=== PATIENT | male | born 1945 | race Caucasian/White ===

== ENCOUNTER 2022-10-10 01:14 | Observation (INO) ==
[2022-10-10] MEDS ORDERED: Pantoprazole VIAL 40 MG VIAL IV ONE (01:37)
[2022-10-10 01:40] LABS: ABS Basophils 0.1 10^3/uL (0.0-0.1); ABS Eosinophils 0.2 10^3/uL (0.0-0.5); ABS Lymphocytes 1.8 10^3/uL (1.0-4.8); ABS Monocytes 0.9 10^3/uL (0.0-1.1); ABS Neutrophils 4.7 10^3/uL (1.5-7.6); ABS Nucleated RBC 0.01 10^3/ul; Hematocrit 20.6 % (38-53); Hemoglobin 6.8 g/dL (13.2-16.3); Lymphocyte % 23.1 %; Mean Corpuscular Hemoglobin 25.7 pg (27-33); Mean Corpuscular Hgb Conc 32.9 g/dL (31-36); Mean Corpuscular Volume 78.3 fL (80-97); Mean Platelet Volume 6.1 fL (7.5-11.2); Nucleated Red Blood Cells % 0.1 /100 WBC (0.0-0.4); Platelet Count 618 10^3/uL (150-450); Red Blood Count 2.64 10^6/uL (4.06-5.63); Red Cell Distribution Width 20.1 % (12-17); White Blood Count 7.7 10^3/uL (3.6-10.2)
[2022-10-10 01:48] LABS: Activated Partial Thrombo Time 31.2 seconds (26.0-38.0); INR 0.96 (0.88-1.18)
[2022-10-10 02:02] LABS: Calcium 9.1 mg/dL (8.6-10.3); Creatinine, Serum 0.61 mg/dL (0.67-1.17); Potassium 3.6 mmol/L (3.5-5.0); eGFR CKD-EPI 100.2 (>60)
[2022-10-10 02:23] LABS: Albumin 3.8 g/dL (3.2-5.2); Albumin/Globulin Ratio 1.7 (1-3); Direct Bilirubin 0.1 mg/dL (0.03-0.18); Globulin 2.2 g/dL (2-4); Indirect Bilirubin 0.3 mg/dL (0.3-1.0); Total Bilirubin 0.4 mg/dL (0.2-1.0)
[2022-10-10 07:35] LABS: Hematocrit 22.7 % (38-53); Hemoglobin 7.5 g/dL (13.2-16.3); Mean Corpuscular Hemoglobin 27.1 pg (27-33); Mean Corpuscular Hgb Conc 33.1 g/dL (31-36); Mean Corpuscular Volume 81.9 fL (80-97); Mean Platelet Volume 6.2 fL (7.5-11.2); Platelet Count 574 10^3/uL (150-450); Red Blood Count 2.77 10^6/uL (4.06-5.63); Red Cell Distribution Width 20.5 % (12-17); White Blood Count 8.2 10^3/uL (3.6-10.2)
[2022-10-10] MEDS: Pantoprazole VIAL 40 MG VIAL IV SCH ×2 (08:31→19:08)
[2022-10-10] MEDS: PTO: Dorzolamide/Timolol OPTH (NF) 10 ML BOT BOTH EYES SCH ×2 (09:00→19:07)
[2022-10-10] MEDS ORDERED: PEG 3000 GI LAVAGE 1 GALLON PO ONE (15:00)
[2022-10-10 17:04] LABS: Hematocrit 24.3 % (38-53); Hemoglobin 8.1 g/dL (13.2-16.3); Mean Corpuscular Hemoglobin 26.6 pg (27-33); Mean Corpuscular Hgb Conc 33.4 g/dL (31-36); Mean Corpuscular Volume 79.8 fL (80-97); Mean Platelet Volume 6.3 fL (7.5-11.2); Platelet Count 616 10^3/uL (150-450); Red Blood Count 3.04 10^6/uL (4.06-5.63); Red Cell Distribution Width 20.3 % (12-17); White Blood Count 6.9 10^3/uL (3.6-10.2)
[2022-10-10 17:21] LABS: Calcium 9.3 mg/dL (8.6-10.3); Creatinine, Serum 0.6 mg/dL (0.67-1.17); Potassium 4.1 mmol/L (3.5-5.0); eGFR CKD-EPI 100.7 (>60)
[2022-10-11 07:18] LABS: Hematocrit 22.6 % (38-53); Hemoglobin 7.8 g/dL (13.2-16.3); Mean Corpuscular Hemoglobin 27.7 pg (27-33); Mean Corpuscular Hgb Conc 34.4 g/dL (31-36); Mean Corpuscular Volume 80.4 fL (80-97); Mean Platelet Volume 6.3 fL (7.5-11.2); Platelet Count 635 10^3/uL (150-450); Red Blood Count 2.81 10^6/uL (4.06-5.63); White Blood Count 7.3 10^3/uL (3.6-10.2)
[2022-10-11 07:38] LABS: Calcium 8.9 mg/dL (8.6-10.3); Creatinine, Serum 0.58 mg/dL (0.67-1.17); Magnesium 1.9 mg/dL (1.9-2.7); Potassium 3.4 mmol/L (3.5-5.0); eGFR CKD-EPI 101.7 (>60)
[2022-10-11] MEDS: Pantoprazole VIAL 40 MG VIAL IV SCH (07:47)
[2022-10-11] MEDS: PTO: Dorzolamide/Timolol OPTH (NF) 10 ML BOT BOTH EYES SCH (07:47)
[2022-10-11] MEDS ORDERED: Midazolam 10 mg/10 ml VIAL 1 mg/ml 10 ml VIAL (10 mg) ONE (09:55)
[2022-10-11] MEDS ORDERED: fentaNYL 100 mcg/2 ml 50 MCG/ML VIAL ONE (09:55)
[2022-10-11] MEDS: KCL 20 MEQ/100 ML IVPREMIX 20 MEQ/100 ML BAG IV SCH ×2 (11:59→14:03)
[2022-10-11] MEDS ORDERED: Iron Sucrose 200 MG in NS 0.9% 100 ml BAG 100 ML IVPB ONE (14:00)
[2022-10-11 15:09] VITALS: BP 112/63
== END 2022-10-11 16:30 | disposition home or self-care (01) ==
LOC: MED 01:14 → ED 01:14 → SUATTDRO 01:57 → MED 05:11
PROVIDERS: ADMIT Internal Medicine; ATTEND Internal Medicine